=== PATIENT | female | born 1960 | race Caucasian/White ===

== ENCOUNTER 2025-01-09 20:53 | Inpatient (IN) | payer MEDICARE, SELFPAY ==
--- NOTE | ~2025-01-09 | CT_ITS ---
PROCEDURE: CTA abdomen pelvis INDICATION: GI bleeding . COMPARISON: None. TECHNIQUE: Axial 2.5 mm images of the abdomen and pelvis were obtained without and with infusion of 100 cc [id number]-300 intravenous contrast. On an independent workstation, 0.625 mm reformatted images were utilized to render MIP and MPR reconstructed images of the abdominal and pelvic vasculature. FINDINGS: The abdominal aorta, visceral vessels and renal arteries demonstrate normal caliber and patency. No hemodynamically significant stenosis or aneurysm is identified. There is moderate atherosclerotic plaques within the internal iliac arteries bilaterally causing 60-70% stenosis. Otherwise, the iliac and visualized femoral vessels are widely patent. No aneurysm or hemodynamically significant stenosis is noted. No contrast blush seen to suggest active gastrointestinal bleed. NONVASCULAR FINDINGS: The liver parenchyma is unremarkable. No intrahepatic mass or ductal dilatation is evident. The gallbladder is unremarkable. The pancreas and spleen are normal in appearance. The adrenal glands are symmetric in size. The kidneys are unremarkable. No intrarenal stones are noted. There is no hydronephrosis. Evaluation of the bowel loops are limited due to lack of oral contrast. There are diffuse thickening and induration of the transverse, descending and sigmoid colon suggestive of infectious or inflammatory colitis. The bladder and rectum are normal in appearance. No free fluid or air is evident. There is no abdominal or pelvic lymphadenopathy. The lower thoracic and lumbar spines are unremarkable. The lung bases are clear. IMPRESSION: No hemodynamically significant stenosis. No contrast blush seen to suggest active GI bleed. Diffuse thickening of the left colon with adjacent fat induration suggestive of colitis. All CT scans at this facility are performed using low dose modulation techniques as appropriate to perform exam including the following: automated exposure control; use of iterative reconstruction technique; adjustment of the mA and/or kV according to patient size (this includes techniques or standardized protocols for targeted exams where dose is matched to indication/reason for exam). Reviewed, dictated and finalized at location S. IMPRESSION: No hemodynamically significant stenosis. No contrast blush seen to suggest active GI bleed. Diffuse thickening of the left colon with adjacent fat induration suggestive of colitis. All CT scans at this facility are performed using low dose modulation techniqu es as appropriate to perform exam including the following: automated exposure c ontrol; use of iterative reconstruction technique; adjustment of the mA and/or kV according to patient size (this includes techniques or standardized protocol s for targeted exams where dose is matched to indication/reason for exam).
[2025-01-09 20:50] VITALS: PULSE 111; RESP 25; TEMP 36.7; O2SAT 98
[2025-01-09 20:56] VITALS: BP 128/75
[2025-01-09 20:58] VITALS: BP 113/66; BP 128/75; PULSE 107; PULSE 118
[2025-01-09 20:59] VITALS: BP 98/74; PULSE 148
--- NOTE | 2025-01-09 20:59 | ECG_ITS ---
Test Date: 2025-01-09 21:06:06 Measurements Intervals [place] Rate: 100 P: 72 IL: 136 QRS: 72 QRSD: 86 T: 78 QT: 369 QTc: 476 Interpretive Statements SINUS TACHYCARDIA POSSIBLE RIGHT ATRIAL ENLARGEMENT LEFT ATRIAL ENLARGEMENT BORDERLINE ST-T WAVE ABNORMALITY- ANTERIOR LEADS BORDERLINE ECG No previous ECG available for comparison Electronically Signed On 01-10-2025 06:16:03 CDT by Yandel León D.O.
[2025-01-09 21:13] LABS: Hematocrit 49.8 % (37.0-47.0); Hemoglobin 16.9 g/dL (12.0-15.0); Mean Corpuscular HGB Conc 33.9 g/dl (32-36); Mean Corpuscular Hemoglobin 29.6 pg (26-34); Mean Corpuscular Volume 87.4 fl (80-100); Platelet Count Result 418 k/mm3 (150-375); Red Blood Count 5.70 M/mm3 (4.2-5.4); White Blood Count 27.6 K/mm3 (4.5-10.0)
[2025-01-09] MEDS: LACTATED RINGERS 1,000 ML 999 ML IV CONT ×2 (21:26→22:48)
[2025-01-09 21:27] LABS: INR 1.0; Prothrombin Time 13.2 Seconds (11.1-14.7)
[2025-01-09 21:28] LABS: Partial Thromboplastin Time 32.2 Seconds (22.3-36.8)
--- NOTE | 2025-01-09 21:29 | ED.GIBLEED ---
HPI - GI Bleed General Chief complaint: GI Bleed Stated complaint: N/V/D ? RECTAL BLEEDING Time Seen by Provider: 01/09/25 21:10 History of Present Illness HPI Narrative: 64-year-old female with history of osteoporosis presenting to the emergency department today with GI rectal bleeding. Patient states that 5:00 a.m. this morning she woke up with nausea and abdominal discomfort and had diarrhea consistent of bright red blood mixed with dark blood. Patient has been bleeding throughout the day and went to the bathroom over 12 times each time filling the toilet bowl with bright red blood. She started using menstrual pads to try and control the bleeding. She has a history of hysterectomy and or for ectopy. Previously had large amounts of bleeding secondary to endometriosis but this resolved after the surgery. She takes a daily aspirin for heart health but otherwise no other anticoagulation. No abdominal trauma, no recent illnesses. No fever, chills, back pain, chest pain, shortness a breath. Had a colonoscopy previously with no concerns per patient report. Related Data Home Medications ?Medication ?Instructions ?Recorded ?Confirmed ?Last Taken ?Type alendronate 70 mg tablet 70 mg PO WEEKLY 01/10/25 01/10/25 01/07/25 History ergocalciferol (vitamin D2) 1,250 50,000 unit PO WEEKLY 01/10/25 01/10/25 01/07/25 History mcg (50,000 unit) capsule rosuvastatin 10 mg tablet 10 mg PO .nightly 01/10/25 01/10/25 01/09/25 History Allergies Allergy/AdvReac Type Severity Reaction Status Date / Time lidocaine Allergy Severe Swelling Verified 01/10/25 01:45 of Lip/Tongue/Throat codeine Allergy Unknown NONE Verified 01/10/25 01:45 Review of Systems Review of Systems: As reviewed above in HPI [facility]LY [facility] Social History Social History Smoking packs per day: 0.5 Smoking cigarettes per day: 10.0 Smoking status: Current every day smoker Tobacco type: cigarettes Second hand tobacco smoke exposure: Yes Alcohol intake: never Substance use: current Substance use type: marijuana Last use: daily Lack of Transportation: No Lack of Food: Never True Current Housing: I Have Housing Concerned About Future Housing: No Difficulty Paying Gas/Electric Bills: No Difficulty Paying for Meds: No Currently Unemployed: No Education: Bachelor's Degree Difficulty w/ Childcare or Family Care: No Spiritual care concerns: No Exam Narrative: GENERAL: Ill and pale appearing, tachypneic, answering questions appropriately but appears frail HEAD: [Normocephalic, atraumatic.] EYES: Pale conjunctiva, pupils equal reactive. ENT: Nares clear, no rhinorrhea or epistaxis. Mucous membranes dry. NECK: Supple. CHEST: [Clear to auscultation. No respiratory distress.] HEART: [Regular rate and rhythm]. No murmur heard. [Normal peripheral pulses.] ABDOMEN: [Soft, nondistended], [nontender], [No rigidity or guarding] : BRBPR on exam, no rectal pain, blood dried surrounding the rectum. EXTREMITIES: Normal range of motion. [No edema.] SKIN: Warm, dry, no rash. NEURO: [No focal deficits]. Alert and oriented [x3.] PSYCH: [Normal mood and affect.] Course Vital Signs Vital signs: Vital Signs Temperature 36.7 C 01/09/25 20:50 Pulse Rate 111 H 01/09/25 20:50 Respiratory Rate 25 H 01/09/25 20:50 Pulse Oximetry 98 01/09/25 20:50 Oxygen Delivery Room Air 01/09/25 20:50 Temperature 37.0 C 01/10/25 01:53 Pulse Rate 96 01/10/25 01:53 Respiratory Rate 18 01/10/25 01:53 Blood Pressure 128/64 01/10/25 01:53 Pulse Oximetry 99 01/10/25 01:53 Oxygen Delivery Room Air 01/09/25 20:50 MDM - GI Bleed MDM Narrative Medical decision making narrative: 64-year-old female with history of osteoporosis presenting to the emergency department today with GI rectal bleeding. Patient states that 5:00 a.m. this morning she woke up with nausea and abdominal discomfort and had diarrhea consistent of bright red blood mixed with dark blood. Patient has been bleeding throughout the day and went to the bathroom over 12 times each time filling the toilet bowl with bright red blood. She started using menstrual pads to try and control the bleeding. She has a history of hysterectomy and or for ectopy. Previously had large amounts of bleeding secondary to endometriosis but this resolved after the surgery. She takes a daily aspirin for heart health but otherwise no other anticoagulation. No abdominal trauma, no recent illnesses. No fever, chills, back pain, chest pain, shortness a breath. Had a colonoscopy previously with no concerns per patient report. Patient has bright red blood per rectum and positive orthostatic vitals with heart rate increasing 148. Transient hypotension that resolved upon laying down. Current blood pressure 121/65. She does appear pale and ill. Suspect GI bleeding, low suspicion infectious pathology such as colitis. CT angiography of the abdomen pelvis was ordered, blood work obtained, given fluids and placed on electronic device monitor. Patient's laboratory studies x-rays show hemoconcentration with an elevated hemoglobin and a large leukocytosis of 27.6. CT angiography shows no active GI bleed but evidence of colitis. I discussed this with the patient and she is not any recent dietary changes or exotic foods or any new travel anywhere. Unknown exact source of this but given the bloody diarrhea, dehydration and abnormal vital signs she requires hospitalization for IV antibiotics and fluids. Started on Levaquin and given additional fluids. Repeat blood pressure 139/71, heart rate 98. Patient did feel better after fluids. Awaiting discussion with hospitalist at this time for admission. Discussed this with the patient and family members. Spoke to the hospitalist who accepted the patient to a telemetry monitored bed at this time. Patient is hemodynamically improved and given additional fluids for further resuscitation. Medical Records Attestation: I reviewed the patient's medical records. Lab Data Attestation: I reviewed the patient's lab results. 01/09/25 21:05 01/09/25 21:05 Labs: Lab Results 01/09/25 01/09/25 Range/Units 21:05 23:48 WBC 27.6 H (4.5-10.0) K/mm3 RBC 5.70 H (4.2-5.4) M/mm3 Hgb 16.9 H (12.0-15.0) g/dL Hct 49.8 H (37.0-47.0) % MCV 87.4 (80-100) fl MCH 29.6 (26-34) pg MCHC 33.9 (32-36) g/dl RDW 12.6 (11.5-14.5) % Plt Count 418 H (150-375) k/mm3 MPV 9.3 (7.4-10.4) fl Immature Gran % (Auto) Not Reportable Neut % (Auto) Not Reportable Lymph % (Auto) Not Reportable Green % (Auto) Not Reportable Eos % (Auto) Not Reportable Baso % (Auto) Not Reportable Lymph # (Auto) Not Reportable Green # (Auto) Not Reportable Eos # (Auto) Not Reportable Baso # (Auto) Not Reportable Abs Immat Gran (auto) Not Reportable Absolute Neuts (auto) Not Reportable Absolute Nucleated RBC Not Reportable Total Counted 100 Neutrophils % (Manual) 89 H (46-73) % Band Neutrophils % 6 (0-6) % Lymphocytes % (Manual) 2.0 L (18-44) % Monocytes % (Manual) 3 (3-9) % Nucleated RBC % Not Reportable Abs Neuts (Manual) 26.22 H (1.3-6.7) K/mm3 Abs Lymphs (Manual) 0.55 L (1.1-4.5) K/mm3 Abs Monocytes (Manual) 0.82 (0.1-0.90) K/mm3 Platelet Estimate Increased (Adequate) Schistocytes None seen PT 13.2 (11.1-14.7) Seconds INR 1.0 APTT 32.2 (22.3-36.8) Seconds Sodium 136 L (137-145) mmol/L Potassium 4.4 (3.4-5.0) mmol/L Chloride 102 (98-107) mmol/L Carbon Dioxide 23 (22-30) mmol/L Anion Gap 11 (4-12) mmol/L BUN 24 H (7-17) mg/dL Creatinine 0.67 L (0.7-1.0) mg/dL Estim Creat Clear Calc Not Reportable Estimated GFR > 60 (59 - ) Glucose 159 H (65-110) mg/dL Lactic Acid 2.2 H 1.3 (0.7-2.0) mmol/L Calcium 10.6 H (8.4-10.2) mg/dL Total Bilirubin 0.8 (0.2-1.3) mg/dL AST 43 H (14-36) U/L ALT 32 (6-35) U/L Alkaline Phosphatase 87 (38-126) U/L Total Protein 8.2 (6.3-8.2) g/dL Albumin 4.7 (3.5-5.1) g/dL Blood Type A Positive Antibody Screen Negative Imaging Data Attestation: I personally reviewed and interpreted this imaging study as follows: My impression: Impressions Abdomen/Pelvis CTA 01/09/25 21:58 IMPRESSION: No hemodynamically significant stenosis. No contrast blush seen to suggest active GI bleed. Diffuse thickening of the left colon with adjacent fat induration suggestive of colitis. All CT scans at this facility are performed using low dose modulation techniques as appropriate to perform exam including the following: automated exposure control; use of iterative reconstruction technique; adjustment of the mA and/or kV according to patient size (this includes techniques or standardized protocols for targeted exams where dose is matched to indication/reason for exam). Critical Care Time Critical Care Time Critical Care Time: Yes Total Critical Care Time: 35 Discharge Plan Discharge Clinical Impression: Colitis presumed infectious, Hematochezia, Acute dehydration Patient Disposition: Still a Patient Condition: Stable
[2025-01-09 21:30] LABS: Alanine Aminotransferase 32 U/L (6-35); Albumin Level 4.7 g/dL (3.5-5.1); Alkaline Phosphatase 87 U/L (38-126); Anion Gap 11 mmol/L (4-12); Aspartate Amino Transferase 43 U/L (14-36); Bilirubin,Total 0.8 mg/dL (0.2-1.3); Blood Urea Nitrogen 24 mg/dL (7-17); Calcium 10.6 mg/dL (8.4-10.2); Carbon Dioxide 23 mmol/L (22-30); Chloride 102 mmol/L (98-107); Estimated Glomerular Filt Rate > 60; Glucose 159 mg/dL (65-110); Potassium 4.4 mmol/L (3.4-5.0); Sodium 136 mmol/L (137-145); Total Protein 8.2 g/dL (6.3-8.2)
[2025-01-09 21:51] LABS: Band Neutrophils Percent 6 % (0-6); Lymphocytes Absolute Manual 0.55 K/mm3 (1.1-4.5); Lymphocytes Percent Manual 2.0 % (18-44); Monocytes Absolute Manual 0.82 K/mm3 (0.1-0.90); Monocytes Percent Manual 3 % (3-9); Neutrophils Absolute Manual 26.22 K/mm3 (1.3-6.7); Neutrophils Percent Manual 89 % (46-73); Schistocytes None Seen; Total Cells Counted 100
[2025-01-09] MEDS: levoFLOXacin 750 MG/D5W 150 ML 750 MG/150 ML BAG 100 MG IVPB (22:48)
--- NOTE | 2025-01-09 23:00 | PC.NURSE ---
This RN received report from Ryann DAVILA.
[2025-01-09 23:16] VITALS: BP 139/71; PULSE 101
[2025-01-09] MEDS: ONDANSETRON INJ 4 MG/2 ML VIAL IV PUSH (23:42)
--- NOTE | 2025-01-09 23:47 | PC.NURSE ---
Pt used call light to tell this RN she is vomiting. EDP made aware. VORB EDP Tor[place] 4 mg Zofran IV.
[2025-01-10] VITALS (12 sets, daily range): BP systolic 89–128; BP diastolic 54–76; PULSE 79–122; RESP 16–20; TEMP 36.6–37; O2SAT 96–99
[2025-01-10] MEDS: LACTATED RINGERS 1,000 ML 999 ML IV CONT (00:34)
[2025-01-10] MEDS: LACTATED RINGERS 1,000 ML 125 ML IV CONT ×3 (00:35→18:10)
[2025-01-10] MEDS: ONDANSETRON INJ 4 MG/2 ML VIAL IV PUSH (01:29)
--- NOTE | 2025-01-10 01:38 | PC.NURSE ---
patient admitted to room 344. Patient had one bout of diarrhea with bright red blood upon getting to the room. Family at bedside
[2025-01-10] MEDS: metroNIDAZOLE 500 MG/ISO 100ML 500 MG/100 ML BAG 100 MG IVPB ×3 (02:48→18:10)
[2025-01-10] MEDS: cefTRIAXone 1 GM in SODIUM CHLORIDE 0.9% IV 50 ML 100 ML IVPB (02:49)
[2025-01-10] MEDS: HYDROmorphone HCL INJ (*CRX) 1 MG/ML SYR 0.5 MG IV PUSH (03:24)
--- NOTE | 2025-01-10 04:28 | PM.IMHP ---
H&P: HPI History of Present Illness Date/Time: 01/10/25 04:28 Chief Complaint: Rectal bleeding Narrative: 64-year-old female with a past medical history of osteoporosis and self reported irritable bowel syndrome. She reports that she usually ends up having nausea vomiting and diarrhea 2 or 3 times a year. She woke up around 05:00 on the with onset of nausea vomiting and shortly thereafter followed by diarrhea. She reports that she has never had symptoms of GI distress this bad before. Her initial stool was brown and formed but shortly thereafter she began having hematochezia. She reports that her stool was mixture of brighter red and dark blood. She continued to have nausea without hematemesis throughout the day but had numerous bouts of bloody diarrhea. She had at least 12 bowel movements each time she reports she filled the toilet bowl with blood. She was using menstrual pads to try to control the bleeding. She thought that some of the bleeding may be due to a hemorrhoid given the frequency of her stools. She reports a crampy mild abdominal pain prior to diarrheal episodes. She was having diaphoresis and sweating associated with the episodes of GI distress. She denies any chest pain or palpitations. She denies any significant lightheadedness or near syncopal episodes. She has not had any recent ill contacts has not been eating out and does not have any recent travel or antibiotic exposure. She denies any history of mucousy stools or weight loss. She does not have a family history of colon cancer. She had a colonoscopy at about 10 years ago. She is actually supposed to receive a call about scheduling her repeat colonoscopy at [facility] sometime in the next week or so. She was afebrile on presentation to the ER but was tachycardic. She did have positive orthostatic vital signs in the ER. She received 2 L of isotonic fluids but was still orthostatic. Her labs demonstrated significant leukocytosis and polycythemia. She had an elevated BUN on on electrolyte panel and some mild lactic acidosis. She also had a mildly elevated transaminase. She was given a dose of Levaquin in the ER. She does work at a [employer]. Review of Systems Review of Systems: 12 systems were reviewed with pertinent positives and negatives per HPI. Except as documented in the HPI, all other systems were reviewed and are negative. [facility] Past Medical History Medical History Seizures With the last seizure being in . Not on seizure meds Hyperlipidemia Vitamin D deficiency Osteoporosis Surgical History Surgical History (Updated 01/10/25 @ 07:36 by Brii Pardo DO) History of rhinoplasty History of tonsillectomy and adenoidectomy History of total abdominal hysterectomy and bilateral salpingo-oophorectomy Social History Social History (Updated 01/10/25 @ 07:38 by Brii Pardo DO) Social History: She is . Her and her ex cisterna share a condo her [id number] lives upstairs she lives downstairs. The patient works at a [employer]. She has smoked up to a pack of cigarettes per day and started smoking in 2000. She is currently cut back to 0.5 packs of cigarettes per day. She does not drink alcohol. She smokes marijuana daily. Code status: Full code Surrogate decision maker: Tatum Urias (daughter) Smoking packs per day: 0.5 Smoking cigarettes per day: 10.0 Years smoked: 24 Smoking pack-years: 12.00 Smoking status: Current every day smoker Tobacco type: cigarettes Second hand tobacco smoke exposure: Yes Alcohol intake: never Substance use: current Substance use type: marijuana Last use: daily Lack of Transportation: No Lack of Food: Never True Current Housing: I Have Housing Concerned About Future Housing: No Difficulty Paying Gas/Electric Bills: No Difficulty Paying for Meds: No Currently Unemployed: No Education: Bachelor's Degree Difficulty w/ Childcare or Family Care: No Spiritual care concerns: No Meds Home Medications and Allergies Home Medications ?Medication ?Instructions ?Recorded ?Confirmed ?Type alendronate 70 mg tablet 70 mg PO WEEKLY 01/10/25 01/10/25 History ergocalciferol (vitamin D2) 1,250 50,000 unit PO WEEKLY 01/10/25 01/10/25 History mcg (50,000 unit) capsule rosuvastatin 10 mg tablet 10 mg PO .nightly 01/10/25 01/10/25 History Allergies Allergy/AdvReac Type Severity Reaction Status Date / Time lidocaine Allergy Severe Swelling Verified 01/10/25 01:45 of Lip/Tongue/Throat codeine Allergy Unknown NONE Verified 01/10/25 01:45 Vital Signs Vital Signs - 24 hr 01/09/25 20:50 01/09/25 20:56 01/09/25 20:58 Temperature 98.1 F Pulse Rate 111 H 107 H Respiratory Rate 25 H Blood Pressure 128/75 128/75 Pulse Oximetry 98 Oxygen Delivery Room Air 01/09/25 20:58 01/09/25 20:59 01/09/25 23:16 Temperature Pulse Rate 118 H 148 H 101 H Respiratory Rate Blood Pressure 113/66 98/74 L 139/71 Pulse Oximetry Oxygen Delivery 01/10/25 01:23 01/10/25 01:53 Temperature 98.6 F Pulse Rate 108 H 96 Respiratory Rate 20 18 Blood Pressure 123/76 128/64 Pulse Oximetry 97 99 Oxygen Delivery Exam Narrative: Weight 54.6 kg BMI 20 Const: Other: Acutely ill-appearing, well-developed well-nourished, appears stated age HENMT: Other: Mucous membranes are dry, no oral pharyngeal erythema, head is normocephalic atraumatic Eyes: Other: Pupils are equal and reactive, no scleral icterus, no conjunctival pallor Neck: Other: No JVD, no lymphadenopathy, no thyromegaly Resp: Other: Clear to auscultation bilaterally, and no increased work of breathing Cardio: Other: Regular rate, regular rhythm, 2+ bilateral radial and pedal pulses, no murmur GI: Other: Soft, mild generalized tenderness to palpation, nondistended, hyperactive bowel sounds Skin: Other: No pallor, non jaundice, normal temperature to touch Neuro: Other: Alert oriented, speech is clear, no facial asymmetry, moves all extremities equally, no localizing neurologic deficits noted during the course of conversation Extrem: Other: No clubbing, cyanosis or edema, moves all extremities equally Psych: Other: Appropriate mood and affect, pleasant and cooperative, judgment and insight intact H&P: Results Labs Labs: Laboratory Tests 01/09/25 21:05 01/09/25 21:05 01/09/25 01/09/25 21:05 23:48 WBC 27.6 H RBC 5.70 H Hgb 16.9 H Hct 49.8 H MCV 87.4 MCH 29.6 MCHC 33.9 RDW 12.6 Plt Count 418 H MPV 9.3 Immature Gran % (Auto) Not Reportable Neut % (Auto) Not Reportable Lymph % (Auto) Not Reportable [place] % (Auto) Not Reportable Eos % (Auto) Not Reportable Baso % (Auto) Not Reportable Lymph # (Auto) Not Reportable [place] # (Auto) Not Reportable Eos # (Auto) Not Reportable Baso # (Auto) Not Reportable Abs Immat Gran (auto) Not Reportable Absolute Neuts (auto) Not Reportable Absolute Nucleated RBC Not Reportable Total Counted 100 Neutrophils % (Manual) 89 H Band Neutrophils % 6 Lymphocytes % (Manual) 2.0 L Monocytes % (Manual) 3 Nucleated RBC % Not Reportable Abs Neuts (Manual) 26.22 H Abs Lymphs (Manual) 0.55 L Abs Monocytes (Manual) 0.82 Platelet Estimate Increased Schistocytes None seen PT 13.2 INR 1.0 APTT 32.2 Sodium 136 L Potassium 4.4 Chloride 102 Carbon Dioxide 23 Anion Gap 11 BUN 24 H Creatinine 0.67 L Estim Creat Clear Calc Not Reportable Estimated GFR > 60 Glucose 159 H Lactic Acid 2.2 H 1.3 Calcium 10.6 H Total Bilirubin 0.8 AST 43 H ALT 32 Alkaline Phosphatase 87 Total Protein 8.2 Albumin 4.7 Blood Type A Positive Antibody Screen Negative Impressions Abdomen/Pelvis CTA 01/09/25 21:58 IMPRESSION: No hemodynamically significant stenosis. No contrast blush seen to suggest active GI bleed. Diffuse thickening of the left colon with adjacent fat induration suggestive of colitis. EKG: Sinus tachycardia rate 100 QTC 478, possible left atrial enlargement, left atrial enlargement Assessment and Plan Assessment and plan (1) Colitis presumed infectious: Code(s): K52.9 - Noninfective gastroenteritis and colitis, unspecified Status: Acute (2) Hematochezia: Code(s): K92.1 - Melena Status: Acute (3) Acute dehydration: Code(s): E86.0 - Dehydration Status: Acute (4) Polycythemia due to fall in plasma volume: Code(s): D75.1 - Secondary polycythemia Status: Acute Plan Patient has acute colitis presumed to be infectious. Inflammatory colitis seems less likely given presentation of symptoms and no preceding waxing and waning symptoms. Symptoms are acute in onset and associated with marked leukocytosis. Patient met septic criteria on presentation and 30 mL/kilos fluid bolus. She was still tachycardic and received 1/3 L of fluid which improved her heart rate. She was markedly volume depleted with polycythemia due to hemoconcentration. Is will continue IV fluid hydration and repeat CBC in a.m.. The patient reports that her number of stools have slowed since arriving to the hospital. Will change the patient's antibiotics from Levaquin to Rocephin and Flagyl per antibiotic stewardship guidelines. Blood cultures have been obtained and are pending. Will send stool studies for C diff and culture. Will monitor H&H. The patient would not be a candidate for acute colonoscopy in her acute presumed infectious state. She already has referral for outpatient colonoscopy. Will hold off on consulting Gastroenterology at this time. MEDICAL DECISION MAKING NARRATIVE -Spoke with the ED provider in detail regarding patient's evaluation, workup and management -Patient seen and examined at bedside -Collaborated with patient's nurse at the bedside in detail and addressed all concerns -Labs, electrolytes, radiology, investigations and test results personally reviewed and interpreted unless otherwise specified -ED/Consult/Nursing/Ancilliary notes on the chart reviewed and appreciated -Spoke with patient at bedside and diagnosis and plan of care was discussed. All questions answered. Quality VTE Prophylaxis VTE prophylaxis: mechanical ordered (SCDs) Hospitalist MIPS Advance Care Plan I have confirmed that the patient's Advanced Care Plan is present, code status is documented, or surrogate decision maker is listed in patient medical record.: Yes Medication Reconciliation I have utilized all available resources to obtain, update and review the patients current medications (includes all prescriptions, OTC, herbals, cannabis, and nutritional supplements).: Yes
[2025-01-10 05:03] LABS: Hematocrit 45.1 % (37.0-47.0); Hemoglobin 14.9 g/dL (12.0-15.0); Immature Granulocyte Percent A 0.6 % (0-0.5); Lymphocytes Absolute Auto 1.56 K/mm3 (0.9-3.2); Mean Corpuscular HGB Conc 33.0 g/dl (32-36); Mean Corpuscular Hemoglobin 29.7 pg (26-34); Mean Corpuscular Volume 90.0 fl (80-100); Nucleated Red Blood Cells Absolute Auto 0.000 K/mm3 (0.0-0.012); Nucleated Red Blood Cells Perc 0.0 % (0.0-0.2); Platelet Count Result 333 k/mm3 (150-375); Red Blood Count 5.01 M/mm3 (4.2-5.4); White Blood Count 24.1 K/mm3 (4.5-10.0)
[2025-01-10 05:27] LABS: Burr Cells Occasional; Ovalocytes 1+; Schistocytes None Seen
[2025-01-10 05:44] LABS: Alanine Aminotransferase 19 U/L (6-35); Albumin Level 3.6 g/dL (3.5-5.1); Alkaline Phosphatase 69 U/L (38-126); Anion Gap 7 mmol/L (4-12); Aspartate Amino Transferase 32 U/L (14-36); Bilirubin,Total 0.6 mg/dL (0.2-1.3); Blood Urea Nitrogen 14 mg/dL (7-17); Calcium 9.8 mg/dL (8.4-10.2); Carbon Dioxide 24 mmol/L (22-30); Chloride 104 mmol/L (98-107); Estimated CRCL calculation 64 ml/min; Estimated Glomerular Filt Rate > 60; Glucose 117 mg/dL (65-110); Magnesium 1.8 mg/dL (1.6-2.3); Potassium 4.8 mmol/L (3.4-5.0); Sodium 135 mmol/L (137-145); Total Protein 6.2 g/dL (6.3-8.2)
--- NOTE | 2025-01-10 09:00 | P.PNIM_ITS ---
Progress Note: A&P Assessment and Plan (1) Sepsis: Code(s): A41.9 - Sepsis, unspecified organism Status: Acute Assessment and Plan: * Meets SIRS criteria: Tachycardia, leukocytosis * lactic acid: 2.2 * 30 mL/kg = 1/3 L of fluid * suspected source: Infectious Colitis * blood cultures drawn on 01/09 * Abdomen/pelvis CT: Diffuse thickening of the left colon with adjacent fat induration suggestive of colitis. No hemodynamically significant stenosis. No contrast blush seen to suggest active GI bleed. * 01/10: Leukocytosis improving, tachycardia has resolved. Lactic acid WNL (2) Colitis presumed infectious: Code(s): K52.9 - Noninfective gastroenteritis and colitis, unspecified Status: Acute Assessment and Plan: Patient states that every year she will experience nausea, vomiting and diarrhea similar to the presentation she has during this hospitalization, but states that this time it is much worse. She also reports noticing blood clots in her stool yesterday which is new. * Inflammatory colitis likely given presentation of symptoms, which are acute in onset with associated leukocytosis * Met septic criteria presentation * Volume depleted with polycythemia due to hemoconcentration * Changed Levaquin to Rocephin plus Flagyl * Blood cultures obtained, pending * Stool studies for C diff and culture pending * GI consult for further recommendations - she had a colonoscopy scheduled for February (3) Hematochezia: Code(s): K92.1 - Melena Status: Acute Assessment and Plan: * See above * H&H WNL * transfuse if <7 * trend H&H (4) Acute dehydration: Code(s): E86.0 - Dehydration Status: Acute Assessment and Plan: * Likely secondary to problem underlying infectious colitis Plan Patient has acute colitis presumed to be infectious. Inflammatory colitis seems less likely given presentation of symptoms and no preceding waxing and waning symptoms. Symptoms are acute in onset and associated with marked leukocytosis. Patient met septic criteria on presentation and 30 mL/kilos fluid bolus. She was still tachycardic and received 1/3 L of fluid which improved her heart rate. She was markedly volume depleted with polycythemia due to hemoconcentration. Is will continue IV fluid hydration and repeat CBC in a.m.. The patient reports that her number of stools have slowed since arriving to the hospital. Will change the patient's antibiotics from Levaquin to Rocephin and Flagyl per antibiotic stewardship guidelines. Blood cultures have been obtained and are pending. Will send stool studies for C diff and culture. Will monitor H&H. The patient would not be a candidate for acute colonoscopy in her acute presumed infectious state. She already has referral for outpatient colonoscopy. Will hold off on consulting Gastroenterology at this time. Subjective Date/time seen: 01/10/25 09:00 Interval history: 64-year-old female with a past medical history of osteoporosis and self reported irritable bowel syndrome. She reports that she usually ends up having nausea vomiting and diarrhea 2 or 3 times a year. 01/10/2025 Patient resting comfortably in bed at time of examination. Endorses improvement of her nausea, abdominal discomfort and diarrhea. Still having some hematochezia. WBC down from 20 7.6-24.1, H&H WNL. No major electrolyte abnormalities. Review of Systems Review of Systems: 12 systems were reviewed with pertinent positives and negatives per HPI. Except as documented in the HPI, all other systems were reviewed and are negative. Exam Narrative: Weight 54.6 kg BMI 20 Const: Other: Acutely ill-appearing, well-developed well-nourished, appears stated age HENMT: Other: Mucous membranes are dry, no oral pharyngeal erythema, head is normocephalic atraumatic Eyes: Other: Pupils are equal and reactive, no scleral icterus, no conjunctival pallor Neck: Other: No JVD, no lymphadenopathy, no thyromegaly Resp: Other: Clear to auscultation bilaterally, and no increased work of breathing Cardio: Other: Regular rate, regular rhythm, 2+ bilateral radial and pedal pulses, no murmur GI: Other: Soft, mild generalized tenderness to palpation, nondistended, hyperactive bowel sounds Skin: Other: No pallor, non jaundice, normal temperature to touch Neuro: Other: Alert oriented, speech is clear, no facial asymmetry, moves all extremities equally, no localizing neurologic deficits noted during the course of conversation Extrem: Other: No clubbing, cyanosis or edema, moves all extremities equally Psych: Other: Appropriate mood and affect, pleasant and cooperative, judgment and insight intact Objective Data Vital Signs Vital Signs: Vital Signs - 24 hr 01/09/25 20:50 01/09/25 20:56 01/09/25 20:58 Temperature 98.1 F Pulse Rate 111 H 107 H Respiratory Rate 25 H Blood Pressure 128/75 128/75 Pulse Oximetry 98 Oxygen Delivery Room Air Fraction of Inspired Oxygen 01/09/25 20:58 01/09/25 20:59 01/09/25 23:16 Temperature Pulse Rate 118 H 148 H 101 H Respiratory Rate Blood Pressure 113/66 98/74 L 139/71 Pulse Oximetry Oxygen Delivery Fraction of Inspired Oxygen 01/10/25 01:23 01/10/25 01:53 01/10/25 04:00 Temperature 98.6 F Pulse Rate 108 H 96 87 Respiratory Rate 20 18 Blood Pressure 123/76 128/64 Pulse Oximetry 97 99 Oxygen Delivery Fraction of Inspired Oxygen 01/10/25 06:00 01/10/25 07:42 01/10/25 08:00 Temperature 98.6 F Pulse Rate 79 93 Respiratory Rate 18 Blood Pressure 125/69 Pulse Oximetry 96 97 Oxygen Delivery Room Air Room Air Fraction of Inspired Oxygen 21 Intake/Output Intake/Output: Intake & Output 01/07/25 01/08/25 01/09/25 01/10/25 23:59 23:59 23:59 23:59 Intake Total 1999 1481.3 Output Total 1 Balance 1999 1480.3 Meds/Results Medications: Active Medications Generic Name Dose Route Start Last Admin Trade Name Freq PRN Reason Stop Dose Admin Acetaminophen 650 mg 01/09/25 23:59 Acetaminophen 325 Mg Tablet PO Q4H PRN Mild Pain (1-3) or Fever Hydrocodone Bitart/Acetaminophen 1 tab 01/09/25 23:59 Hydrocodone/Acetaminophen (*Crx) 5-325 Mg Tablet PO Q4H PRN Pain Rated 4-6 Hydromorphone HCl 0.5 mg 01/09/25 23:59 01/10/25 03:24 Hydromorphone Hcl Inj (*Crx) 1 Mg/Ml Syr IV PUSH 0.5 mg Q4H PRN Administration Pain Rated 7-10 Lactated Ringer's 1,000 mls @ 125 mls/hr 01/09/25 23:45 01/10/25 08:26 Lr - Lactated Ringers Iv IV CONT 125 mls/hr .Q8H JASON Administration Ceftriaxone Sodium 1 gm/ 50 mls @ 100 mls/hr 01/10/25 02:30 01/10/25 03:21 Sodium Chloride IVPB Infused Q24H JASON Infusion Metronidazole 500 mg in 100 mls @ 100 mls/hr 01/10/25 03:00 01/10/25 02:48 Flagyl 500 Mg/Iso Soln 100 Ml IVPB 100 mls/hr Q8H JASON Administration Ondansetron HCl 4 mg 01/09/25 23:59 01/10/25 01:29 Ondansetron Inj 4 Mg/2 Ml Vial IV PUSH 4 mg Q4H PRN Administration Nausea Radiology Results: ITS Impressions Abdomen/Pelvis CTA 01/09/25 21:58 IMPRESSION: No hemodynamically significant stenosis. No contrast blush seen to suggest active GI bleed. Diffuse thickening of the left colon with adjacent fat induration suggestive of colitis. All CT scans at this facility are performed using low dose modulation techniques as appropriate to perform exam including the following: automated exposure control; use of iterative reconstruction technique; adjustment of the mA and/or kV according to patient size (this includes techniques or standardized protocols for targeted exams where dose is matched to indication/reason for exam). Labs Labs: Laboratory Results - last 24 hr 01/09/25 01/09/25 01/10/25 21:05 23:48 04:54 WBC 27.6 H 24.1 H RBC 5.70 H 5.01 Hgb 16.9 H 14.9 Hct 49.8 H 45.1 MCV 87.4 90.0 MCH 29.6 29.7 MCHC 33.9 33.0 RDW 12.6 12.7 Plt Count 418 H 333 MPV 9.3 9.3 Immature Gran % (Auto) Not Reportable 0.6 H Neut % (Auto) Not Reportable 85.6 H Lymph % (Auto) Not Reportable 6.5 L [place] % (Auto) Not Reportable 7.1 Eos % (Auto) Not Reportable 0.0 Baso % (Auto) Not Reportable 0.2 Lymph # (Auto) Not Reportable 1.56 [place] # (Auto) Not Reportable 1.7 H Eos # (Auto) Not Reportable 0.0 Baso # (Auto) Not Reportable 0.0 Abs Immat Gran (auto) Not Reportable 0.14 H Absolute Neuts (auto) Not Reportable 20.7 H Absolute Nucleated RBC Not Reportable 0.000 Total Counted 100 Neutrophils % (Manual) 89 H Band Neutrophils % 6 Not Reportable Lymphocytes % (Manual) 2.0 L Monocytes % (Manual) 3 Nucleated RBC % Not Reportable 0.0 Abs Neuts (Manual) 26.22 H Abs Lymphs (Manual) 0.55 L Abs Monocytes (Manual) 0.82 Platelet Estimate Increased Adequate Ovalocytes 1+ [place] Cells Occasional Schistocytes None seen None seen PT 13.2 INR 1.0 APTT 32.2 Sodium 136 L 135 L Potassium 4.4 4.8 Chloride 102 104 Carbon Dioxide 23 24 Anion Gap 11 7 BUN 24 H 14 D Creatinine 0.67 L 0.64 L Estim Creat Clear Calc Not Reportable 64 Estimated GFR > 60 > 60 Glucose 159 H 117 H Lactic Acid 2.2 H 1.3 Calcium 10.6 H 9.8 Magnesium 1.8 Total Bilirubin 0.8 0.6 AST 43 H 32 ALT 32 19 Alkaline Phosphatase 87 69 Total Protein 8.2 6.2 L Albumin 4.7 3.6 Blood Type A Positive Antibody Screen Negative Quality VTE Prophylaxis VTE prophylaxis: mechanical ordered (SCDs)
[2025-01-10 14:05] LABS: Hematocrit 43.9 % (37.0-47.0); Hemoglobin 14.5 g/dL (12.0-15.0)
[2025-01-10] MEDS: HYDROcodone/acetaminophen (*CRX) 5-325 MG TABLET 1 TAB PO (14:27)
--- NOTE | 2025-01-10 14:34 | P.CONGI_ITS ---
Assessment and Plan Assessment and plan (1) Colitis: Code(s): K52.9 - Noninfective gastroenteritis and colitis, unspecified Status: Acute Assessment and Plan: probably ischemic, lactic improved get stool cultures to rule out infection treated with iv fluids, antibiotics, bowel rest already feeling better I would defer colonoscopy until clinically better preferably in few more weeks unless any change in clinical condition (2) Hematochezia: Code(s): K92.1 - Melena Status: Acute Assessment and Plan: from colitis monitor (3) Acute dehydration: Code(s): E86.0 - Dehydration Status: Acute Assessment and Plan: treated she came in with hemoconcentration, abd pain, diarrhea (4) Lower abdominal pain: Code(s): R10.30 - Lower abdominal pain, unspecified Status: Acute Assessment and Plan: improving slowly (5) Sepsis: Code(s): A41.9 - Sepsis, unspecified organism Status: Acute Assessment and Plan: on arrival GI Consult Note Consult date/time: 01/10/25 14:34 Reason for consult: colitis, rectal bleeding HPI: Carly Urias is a 64 year old female with past medical history of osteoporosis, irritable bowel syndrome with her last colonoscopy about 10 years ago. She reports that she usually she will have 1-2 times a year episode of self limited nausea vomiting and diarrhea for 1-2 days but never had rectal bleeding. Yesterday woke up around 05:00 with new onset of nausea, vomiting and shortly thereafter followed by diarrhea, had multiple loose stools and eventually turned to blood. Then also had crampy lower abdominal pain, also diaphoresis and sweating. She denies any significant lightheadedness or near syncopal episodes. No recent ill contacts, denies eating out, does not have any recent travel or antibiotic exposure. She had a colonoscopy at about 10 years ago. She is actually supposed to receive a call about scheduling her repeat colonoscopy at [facility] in few more weeks but just as routine. She was orthostatic in ER, received 2 L of isotonic fluids. Labs demonstrated significant leukocytosis, dehydration with hemoconcentration. She had an elevated BUN and some mild lactic acidosis which has improved. Review of Systems 2 Constitutional: Constitutional: Reports chills Eyes: Eyes: Denies blurry vision ENT: Reports Normal hearing present Cardiovascular: Cardiovascular: Denies chest pain Respiratory: Respiratory: Denies cough Gastrointestinal: Gastrointestinal: Reports abdominal pain, Reports hematochezia, Reports diarrhea, Reports nausea and Reports vomiting Genitourinary: Genitourinary: Denies dysuria Musculoskeletal: Musculoskeletal: Denies neck pain Integumentary/Breasts: Skin/Breast: Denies rash Neurologic: Denies Abnormal speech present Psychiatric: Psychiatric: Denies behavioral changes [facility] Past Medical History Medical History (Updated 01/10/25 @ 14:40 by Vinh King MD) Lower abdominal pain Colitis Seizures With the last seizure being in . Not on seizure meds Hyperlipidemia Vitamin D deficiency Osteoporosis Surgical History Surgical History (Updated 01/10/25 @ 07:36 by Brii Pardo DO) History of rhinoplasty History of tonsillectomy and adenoidectomy History of total abdominal hysterectomy and bilateral salpingo-oophorectomy Social History Social History (Updated 01/10/25 @ 07:38 by Brii Pardo DO) Social History: She is . Her and her ex cisterna share a condo her [id number] lives upstairs she lives downstairs. The patient works at a [employer]. She has smoked up to a pack of cigarettes per day and started smoking in 2000. She is currently cut back to 0.5 packs of cigarettes per day. She does not drink alcohol. She smokes marijuana daily. Code status: Full code Surrogate decision maker: Tatum Urias (daughter) Smoking packs per day: 0.5 Smoking cigarettes per day: 10.0 Years smoked: 24 Smoking pack-years: 12.00 Smoking status: Current every day smoker Tobacco type: cigarettes Second hand tobacco smoke exposure: Yes Alcohol intake: never Substance use: current Substance use type: marijuana Last use: daily Lack of Transportation: No Lack of Food: Never True Current Housing: I Have Housing Concerned About Future Housing: No Difficulty Paying Gas/Electric Bills: No Difficulty Paying for Meds: No Currently Unemployed: No Education: Bachelor's Degree Difficulty w/ Childcare or Family Care: No Spiritual care concerns: No Meds Home Medications and Allergies Home Medications ?Medication ?Instructions ?Recorded ?Confirmed ?Type alendronate 70 mg tablet 70 mg PO WEEKLY 01/10/25 History ergocalciferol (vitamin D2) 1,250 50,000 unit PO WEEKL Y 01/10/25 01/10/25 History mcg (50,000 unit) capsule rosuvastatin 10 mg tablet 10 mg PO .nightly 01/10/25 1 History Allergies Allergy/AdvReac Type Severity Reaction Status Date / Time lidocaine Allergy Severe Swelling Verified 01/10/25 01:45 of Lip/Tongue/Throat codeine Allergy Unknown NONE Verified 01/10/25 01:45 Vital Signs Vital Signs - 24 hr 01/09/25 20:50 01/09/25 20:56 01/09/25 20:58 Temperature 98.1 F Pulse Rate 111 H 107 H Respiratory Rate 25 H Blood Pressure 128/75 128/75 Pulse Oximetry 98 Oxygen Delivery Room Air Fraction of Inspired Oxygen 01/09/25 20:58 01/09/25 20:59 01/09/25 23:16 Temperature Pulse Rate 118 H 148 H 101 H Respiratory Rate Blood Pressure 113/66 98/74 L 139/71 Pulse Oximetry Oxygen Delivery Fraction of Inspired Oxygen 01/10/25 01:23 01/10/25 01:53 01/10/25 04:00 Temperature 98.6 F Pulse Rate 108 H 96 87 Respiratory Rate 20 18 Blood Pressure 123/76 128/64 Pulse Oximetry 97 99 Oxygen Delivery Fraction of Inspired Oxygen 01/10/25 06:00 01/10/25 07:42 01/10/25 08:00 Temperature 98.6 F Pulse Rate 79 93 Respiratory Rate 18 Blood Pressure 125/69 Pulse Oximetry 96 97 Oxygen Delivery Room Air Room Air Fraction of Inspired Oxygen 21 01/10/25 14:00 Temperature 98.0 F Pulse Rate 86 Respiratory Rate 18 Blood Pressure 126/70 Pulse Oximetry 96 Oxygen Delivery Fraction of Inspired Oxygen Exam 2 Const: General: comfortable and no acute distress HENMT: Face/Nose/Sinus: Normal nares present Eyes: General: appearance normal, both eyes and all related structures Neck: Neck: supple Resp: Auscultation: clear to auscultation bilaterally Cardio: Rate: regular rate Rhythm: regular rhythm GI: Inspection: non-distended GI Palp: Yes Soft to palpation, Yes Tenderness to palpation present (GI) (ttp in lower abdomen, no rebound) and No Guarding due to palpation present (GI) Skin: General skin exam: normal color Neuro: Speech: normal speech Motor exam (neuro): 5/5 motor strength present throughout Extrem: General: normal to inspection Psych: Mental Status: mental status grossly normal Results Labs 01/10/25 14:00 01/10/25 04:54 Labs: Short CBC 01/09/25 01/10/25 01/10/25 Range/Units 21:05 04:54 14:00 WBC 27.6 H 24.1 H (4.5-10.0) K/mm3 Hgb 16.9 H 14.9 14.5 (12.0-15.0) g/dL Hct 49.8 H 45.1 43.9 (37.0-47.0) % Plt Count 418 H 333 (150-375) k/mm3 BMP 01/09/25 01/10/25 21:05 04:54 Sodium 136 L 135 L Potassium 4.4 4.8 Chloride 102 104 Carbon Dioxide 23 24 BUN 24 H 14 D Creatinine 0.67 L 0.64 L Glucose 159 H 117 H Calcium 10.6 H 9.8 Liver Function 01/09/25 01/10/25 Range/Units 21:05 04:54 Total Bilirubin 0.8 0.6 (0.2-1.3) mg/dL AST 43 H 32 (14-36) U/L ALT 32 19 (6-35) U/L Alkaline Phosphatase 87 69 (38-126) U/L Albumin 4.7 3.6 (3.5-5.1) g/dL
[2025-01-10 20:07] LABS: Hematocrit 41.9 % (37.0-47.0); Hemoglobin 14.0 g/dL (12.0-15.0)
[2025-01-11] VITALS (14 sets, daily range): BP systolic 86–113; BP diastolic 45–64; PULSE 76–117; RESP 16–20; TEMP 36.5–36.9; O2SAT 96–97
[2025-01-11] MEDS: LACTATED RINGERS 1,000 ML 125 ML IV CONT ×3 (00:36→17:43)
[2025-01-11] MEDS: ONDANSETRON INJ 4 MG/2 ML VIAL IV PUSH ×3 (00:36→14:31)
[2025-01-11] MEDS: HYDROcodone/acetaminophen (*CRX) 5-325 MG TABLET 1 TAB PO ×2 (03:08→14:31)
[2025-01-11] MEDS: metroNIDAZOLE 500 MG/ISO 100ML 500 MG/100 ML BAG 100 MG IVPB ×3 (03:08→18:14)
[2025-01-11] MEDS: cefTRIAXone 1 GM in SODIUM CHLORIDE 0.9% IV 50 ML 100 ML IVPB (03:08)
[2025-01-11 03:41] LABS: Hematocrit 43.1 % (37.0-47.0); Hemoglobin 14.4 g/dL (12.0-15.0)
[2025-01-11 08:28] LABS: Hematocrit 41.2 % (37.0-47.0); Hemoglobin 13.6 g/dL (12.0-15.0); Immature Granulocyte Percent A 0.5 % (0-0.5); Lymphocytes Absolute Auto 2.92 K/mm3 (0.9-3.2); Mean Corpuscular HGB Conc 33.0 g/dl (32-36); Mean Corpuscular Hemoglobin 29.7 pg (26-34); Mean Corpuscular Volume 90.0 fl (80-100); Nucleated Red Blood Cells Absolute Auto 0.000 K/mm3 (0.0-0.012); Nucleated Red Blood Cells Perc 0.0 % (0.0-0.2); Platelet Count Result 274 k/mm3 (150-375); Red Blood Count 4.58 M/mm3 (4.2-5.4); White Blood Count 18.9 K/mm3 (4.5-10.0)
[2025-01-11 08:51] LABS: Hematocrit 40.6 % (37.0-47.0); Hemoglobin 13.3 g/dL (12.0-15.0)
[2025-01-11 08:53] LABS: Alanine Aminotransferase 14 U/L (6-35); Albumin Level 3.3 g/dL (3.5-5.1); Alkaline Phosphatase 76 U/L (38-126); Anion Gap 3 mmol/L (4-12); Aspartate Amino Transferase 29 U/L (14-36); Bilirubin,Total 0.5 mg/dL (0.2-1.3); Blood Urea Nitrogen 10 mg/dL (7-17); Calcium 9.3 mg/dL (8.4-10.2); Carbon Dioxide 27 mmol/L (22-30); Chloride 102 mmol/L (98-107); Estimated CRCL calculation 60 ml/min; Estimated Glomerular Filt Rate > 60; Glucose 91 mg/dL (65-110); Potassium 3.8 mmol/L (3.4-5.0); Sodium 132 mmol/L (137-145); Total Protein 5.9 g/dL (6.3-8.2)
--- NOTE | 2025-01-11 11:28 | P.PNIM_ITS ---
Progress Note: A&P Assessment and Plan (1) Sepsis: Code(s): A41.9 - Sepsis, unspecified organism Status: Acute Assessment and Plan: * Meets SIRS criteria: Tachycardia, leukocytosis * lactic acid: 2.2 * 30 mL/kg = 1/3 L of fluid * suspected source: Infectious Colitis * blood cultures drawn on 01/09 - still pending * Abdomen/pelvis CT: Diffuse thickening of the left colon with adjacent fat induration suggestive of colitis. No hemodynamically significant stenosis. No contrast blush seen to suggest active GI bleed. * 01/11: WBC 24.1 -> 18.9, remains afebrile without tachy (2) Colitis presumed infectious: Code(s): K52.9 - Noninfective gastroenteritis and colitis, unspecified Status: Acute Assessment and Plan: Patient states that every year she will experience nausea, vomiting and diarrhea similar to the presentation she has during this hospitalization, but states that this time it is much worse. She also reports noticing blood clots in her stool yesterday which is new. * Inflammatory colitis likely given presentation of symptoms, which are acute in onset with associated leukocytosis * Met septic criteria presentation * Volume depleted with polycythemia due to hemoconcentration * Changed Levaquin to Rocephin plus Flagyl * Blood cultures obtained, pending * Stool studies for C diff and culture pending * GI consult for further recommendations - she had a colonoscopy scheduled for February * treat with IV fluids, antibiotics continue bowel rest * defer colonoscopy until acute infection has cleared (3) Hematochezia: Code(s): K92.1 - Melena Status: Acute Assessment and Plan: * See above * H&H WNL * transfuse if <7 * trend H&H (4) Acute dehydration: Code(s): E86.0 - Dehydration Status: Acute Assessment and Plan: * Likely secondary to problem underlying infectious colitis Subjective Date/time seen: 01/11/25 11:28 Interval history: 64-year-old female with a past medical history of osteoporosis and self reported irritable bowel syndrome. She reports that she usually ends up having nausea vomiting and diarrhea 2 or 3 times a year. 01/11/2025 Patient resting comfortably in bed at time of examination. Endorsing improvement of her abdominal discomfort, still having some nausea/ 1 episode of emesis this morning. blood culture still pending. GI consulted, no acute intervention at this time, plan for colonoscopy in the outpatient setting. Leukocytosis improving, down to 18.9 today. Sitting continues to downtrend, down from 135->132. No other electrolyte abnormalities. Review of Systems Review of Systems: 12 systems were reviewed with pertinent positives and negatives per HPI. Except as documented in the HPI, all other systems were reviewed and are negative. Exam Narrative: Weight 54.6 kg BMI 20 Const: Other: Acutely ill-appearing, well-developed well-nourished, appears stated age HENMT: Other: Mucous membranes are dry, no oral pharyngeal erythema, head is normocephalic atraumatic Eyes: Other: Pupils are equal and reactive, no scleral icterus, no conjunctival pallor Neck: Other: No JVD, no lymphadenopathy, no thyromegaly Resp: Other: Clear to auscultation bilaterally, and no increased work of breathing Cardio: Other: Regular rate, regular rhythm, 2+ bilateral radial and pedal pulses, no murmur GI: Other: Soft, mild generalized tenderness to palpation, nondistended, hyperactive bowel sounds Skin: Other: No pallor, non jaundice, normal temperature to touch Neuro: Other: Alert oriented, speech is clear, no facial asymmetry, moves all extremities equally, no localizing neurologic deficits noted during the course of conversation Extrem: Other: No clubbing, cyanosis or edema, moves all extremities equally Psych: Other: Appropriate mood and affect, pleasant and cooperative, judgment and insight intact Objective Data Vital Signs Vital Signs: Vital Signs - 24 hr 01/10/25 12:06 01/10/25 14:00 01/10/25 16:05 Temperature 98.0 F Pulse Rate 82 86 83 Respiratory Rate 18 Blood Pressure 126/70 Pulse Oximetry 96 Oxygen Delivery 01/10/25 20:00 01/10/25 20:30 01/10/25 21:32 Temperature 97.9 F Pulse Rate 99 122 H 89 Respiratory Rate 16 Blood Pressure 112/54 L 89/61 L 117/69 Pulse Oximetry 96 Oxygen Delivery 01/11/25 00:00 01/11/25 04:00 01/11/25 05:50 Temperature 98.4 F Pulse Rate 117 H 84 92 Respiratory Rate 16 Blood Pressure 113/64 Pulse Oximetry 97 Oxygen Delivery 01/11/25 08:00 01/11/25 08:00 Temperature Pulse Rate 79 Respiratory Rate Blood Pressure Pulse Oximetry Oxygen Delivery Room Air Intake/Output Intake/Output: Intake & Output 01/08/25 01/09/25 01/10/25 01/11/25 23:59 23:59 23:59 23:59 Intake Total 1999 3081.3 2274.2 Output Total 1 50 Balance 1999 3080.3 2224.2 Meds/Results Medications: Active Medications Generic Name Dose Route Start Last Admin Trade Name Freq PRN Reason Stop Dose Admin Acetaminophen 650 mg 01/09/25 23:59 Acetaminophen 325 Mg Tablet PO Q4H PRN Mild Pain (1-3) or Fever Hydrocodone Bitart/Acetaminophen 1 tab 01/09/25 23:59 01/11/25 03:08 Hydrocodone/Acetaminophen (*Crx) 5-325 Mg Tablet PO 1 tab Q4H PRN Administration Pain Rated 4-6 Hydromorphone HCl 0.5 mg 01/09/25 23:59 01/10/25 03:24 Hydromorphone Hcl Inj (*Crx) 1 Mg/Ml Syr IV PUSH 0.5 mg Q4H PRN Administration Pain Rated 7-10 Lactated Ringer's 1,000 mls @ 125 mls/hr 01/09/25 23:45 01/11/25 10:02 Lr - Lactated Ringers Iv IV CONT 125 mls/hr .Q8H JASON Administration Ceftriaxone Sodium 1 gm/ 50 mls @ 100 mls/hr 01/10/25 02:30 01/11/25 03:08 Sodium Chloride IVPB 100 mls/hr Q24H JASON Administration Metronidazole 500 mg in 100 mls @ 100 mls/hr 01/10/25 03:00 01/11/25 03:08 Flagyl 500 Mg/Iso Soln 100 Ml IVPB 100 mls/hr Q8H JASON Administration Ondansetron HCl 4 mg 01/09/25 23:59 01/11/25 09:59 Ondansetron Inj 4 Mg/2 Ml Vial IV PUSH 4 mg Q4H PRN Administration Nausea Radiology Results: ITS Impressions Abdomen/Pelvis CTA 01/09/25 21:58 IMPRESSION: No hemodynamically significant stenosis. No contrast blush seen to suggest active GI bleed. Diffuse thickening of the left colon with adjacent fat induration suggestive of colitis. All CT scans at this facility are performed using low dose modulation techniques as appropriate to perform exam including the following: automated exposure control; use of iterative reconstruction technique; adjustment of the mA and/or kV according to patient size (this includes techniques or standardized protocols for targeted exams where dose is matched to indication/reason for exam). Labs Labs: Laboratory Results - last 24 hr 01/10/25 01/10/25 01/11/25 14:00 20:02 02:34 WBC RBC Hgb 14.5 14.0 14.4 Hct 43.9 41.9 43.1 MCV MCH MCHC RDW Plt Count MPV Immature Gran % (Auto) Neut % (Auto) Lymph % (Auto) [place] % (Auto) Eos % (Auto) Baso % (Auto) Lymph # (Auto) [place] # (Auto) Eos # (Auto) Baso # (Auto) Abs Immat Gran (auto) Absolute Neuts (auto) Absolute Nucleated RBC Nucleated RBC % Sodium Potassium Chloride Carbon Dioxide Anion Gap BUN Creatinine Estim Creat Clear Calc Estimated GFR Glucose Calcium Total Bilirubin AST ALT Alkaline Phosphatase Total Protein Albumin 01/11/25 01/11/25 07:56 08:37 WBC 18.9 H RBC 4.58 Hgb 13.6 13.3 Hct 41.2 40.6 MCV 90.0 MCH 29.7 MCHC 33.0 RDW 12.7 Plt Count 274 MPV 9.7 Immature Gran % (Auto) 0.5 Neut % (Auto) 76.9 H Lymph % (Auto) 15.5 L [place] % (Auto) 6.7 Eos % (Auto) 0.2 Baso % (Auto) 0.2 Lymph # (Auto) 2.92 [place] # (Auto) 1.3 H Eos # (Auto) 0.0 Baso # (Auto) 0.0 Abs Immat Gran (auto) 0.09 H Absolute Neuts (auto) 14.5 H Absolute Nucleated RBC 0.000 Nucleated RBC % 0.0 Sodium 132 L Potassium 3.8 Chloride 102 Carbon Dioxide 27 Anion Gap 3 L BUN 10 Creatinine 0.68 L Estim Creat Clear Calc 60 Estimated GFR > 60 Glucose 91 Calcium 9.3 Total Bilirubin 0.5 AST 29 ALT 14 Alkaline Phosphatase 76 Total Protein 5.9 L Albumin 3.3 L Quality VTE Prophylaxis VTE prophylaxis: mechanical ordered (SCDs)
--- NOTE | 2025-01-11 15:33 | WPDGIPROGNO ---
Progress Note: A&P Assessment and Plan (1) Colitis: Code(s): K52.9 - Noninfective gastroenteritis and colitis, unspecified Status: Acute Assessment and Plan: differential infectious vs ischemic normalization of lactic acid after medical treatment and fluids pain has improved and leukocytosis coming down liquid diet for now, still not much of appetite on flagyl and rocephin stool culture and c diff ordered on admission but not collected- no diarrhea now will need colonoscopy in few weeks after resolution of colitis (2) Lower abdominal pain: Code(s): R10.30 - Lower abdominal pain, unspecified Status: Acute (3) Hematochezia: Code(s): K92.1 - Melena Status: Acute (4) Acute dehydration: Code(s): E86.0 - Dehydration Status: Acute Assessment and Plan: treated (5) Sepsis: Code(s): A41.9 - Sepsis, unspecified organism Status: Acute (6) Leukocytosis: Code(s): D72.829 - Elevated white blood cell count, unspecified Status: Acute Subjective Date/time seen: 01/11/25 15:33 Interval history: less abdominal pain, still poor appetite no blood in stool today, this has improved Review of Systems Review of Systems: All systems reviewed & are unremarkable except as noted in HPI and below Exam Const: General: comfortable and no acute distress HENMT: Face/Nose/Sinus: Normal nares present Eyes: General: appearance normal, both eyes and all related structures Neck: Neck: supple Resp: Auscultation: clear to auscultation bilaterally Cardio: Rate: regular rate Rhythm: regular rhythm GI: Inspection: non-distended GI Palp: Yes Soft to palpation, Yes Tenderness to palpation present (GI) (ttp in lower abdomen, no rebound) and No Guarding due to palpation present (GI) Skin: General skin exam: normal color Neuro: Speech: normal speech Motor exam (neuro): 5/5 motor strength present throughout Extrem: General: normal to inspection Psych: Mental Status: mental status grossly normal Objective Data Vital Signs Vital Signs: Vital Signs - 24 hr 01/10/25 16:05 01/10/25 20:00 01/10/25 20:30 Temperature Pulse Rate 83 99 122 H Respiratory Rate Blood Pressure 112/54 L 89/61 L Pulse Oximetry Oxygen Delivery 01/10/25 21:32 01/11/25 00:00 01/11/25 04:00 Temperature 97.9 F Pulse Rate 89 117 H 84 Respiratory Rate 16 Blood Pressure 117/69 Pulse Oximetry 96 Oxygen Delivery 01/11/25 05:50 01/11/25 08:00 01/11/25 08:00 Temperature 98.4 F Pulse Rate 92 79 Respiratory Rate 16 Blood Pressure 113/64 Pulse Oximetry 97 Oxygen Delivery Room Air 01/11/25 08:00 01/11/25 12:00 01/11/25 12:30 Temperature Pulse Rate 86 Respiratory Rate Blood Pressure 101/61 89/45 L Pulse Oximetry Oxygen Delivery 01/11/25 12:57 01/11/25 12:58 Temperature 98.2 F Pulse Rate 90 Respiratory Rate 18 Blood Pressure 106/53 L 101/61 Pulse Oximetry 97 Oxygen Delivery Intake/Output Intake/Output: Intake & Output 01/08/25 01/09/25 01/10/25 01/11/25 23:59 23:59 23:59 23:59 Intake Total 1999 3081.3 2614.2 Output Total 1 50 Balance 1999 3080.3 2564.2 Meds/Results Medications: Active Medications Generic Name Dose Route Start Last Admin Trade Name Freq PRN Reason Stop Dose Admin Acetaminophen 650 mg 01/09/25 23:59 Acetaminophen 325 Mg Tablet PO Q4H PRN Mild Pain (1-3) or Fever Hydrocodone Bitart/Acetaminophen 1 tab 01/09/25 23:59 01/11/25 14:31 Hydrocodone/Acetaminophen (*Crx) 5-325 Mg Tablet PO 1 tab Q4H PRN Administration Pain Rated 4-6 Hydromorphone HCl 0.5 mg 01/09/25 23:59 01/10/25 03:24 Hydromorphone Hcl Inj (*Crx) 1 Mg/Ml Syr IV PUSH 0.5 mg Q4H PRN Administration Pain Rated 7-10 Lactated Ringer's 1,000 mls @ 125 mls/hr 01/09/25 23:45 01/11/25 10:02 Lr - Lactated Ringers Iv IV CONT 125 mls/hr .Q8H JASON Administration Ceftriaxone Sodium 1 gm/ 50 mls @ 100 mls/hr 01/10/25 02:30 01/11/25 03:08 Sodium Chloride IVPB 100 mls/hr Q24H JASON Administration Metronidazole 500 mg in 100 mls @ 100 mls/hr 01/10/25 03:00 01/11/25 11:13 Flagyl 500 Mg/Iso Soln 100 Ml IVPB 100 mls/hr Q8H JASON Administration Ondansetron HCl 4 mg 01/09/25 23:59 01/11/25 14:31 Ondansetron Inj 4 Mg/2 Ml Vial IV PUSH 4 mg Q4H PRN Administration Nausea Radiology Results: ITS Impressions Abdomen/Pelvis CTA 01/09/25 21:58 IMPRESSION: No hemodynamically significant stenosis. No contrast blush seen to suggest active GI bleed. Diffuse thickening of the left colon with adjacent fat induration suggestive of colitis. All CT scans at this facility are performed using low dose modulation techniques as appropriate to perform exam including the following: automated exposure control; use of iterative reconstruction technique; adjustment of the mA and/or kV according to patient size (this includes techniques or standardized protocols for targeted exams where dose is matched to indication/reason for exam). Labs Labs: Laboratory Results - last 24 hr 01/10/25 01/11/25 01/11/25 20:02 02:34 07:56 WBC 18.9 H RBC 4.58 Hgb 14.0 14.4 13.6 Hct 41.9 43.1 41.2 MCV 90.0 MCH 29.7 MCHC 33.0 RDW 12.7 Plt Count 274 MPV 9.7 Immature Gran % (Auto) 0.5 Neut % (Auto) 76.9 H Lymph % (Auto) 15.5 L [place] % (Auto) 6.7 Eos % (Auto) 0.2 Baso % (Auto) 0.2 Lymph # (Auto) 2.92 [place] # (Auto) 1.3 H Eos # (Auto) 0.0 Baso # (Auto) 0.0 Abs Immat Gran (auto) 0.09 H Absolute Neuts (auto) 14.5 H Absolute Nucleated RBC 0.000 Nucleated RBC % 0.0 Sodium 132 L Potassium 3.8 Chloride 102 Carbon Dioxide 27 Anion Gap 3 L BUN 10 Creatinine 0.68 L Estim Creat Clear Calc 60 Estimated GFR > 60 Glucose 91 Calcium 9.3 Total Bilirubin 0.5 AST 29 ALT 14 Alkaline Phosphatase 76 Total Protein 5.9 L Albumin 3.3 L 01/11/25 08:37 WBC RBC Hgb 13.3 Hct 40.6 MCV MCH MCHC RDW Plt Count MPV Immature Gran % (Auto) Neut % (Auto) Lymph % (Auto) [place] % (Auto) Eos % (Auto) Baso % (Auto) Lymph # (Auto) [place] # (Auto) Eos # (Auto) Baso # (Auto) Abs Immat Gran (auto) Absolute Neuts (auto) Absolute Nucleated RBC Nucleated RBC % Sodium Potassium Chloride Carbon Dioxide Anion Gap BUN Creatinine Estim Creat Clear Calc Estimated GFR Glucose Calcium Total Bilirubin AST ALT Alkaline Phosphatase Total Protein Albumin
[2025-01-12] VITALS: PULSE 71
[2025-01-12] MEDS: cefTRIAXone 1 GM in SODIUM CHLORIDE 0.9% IV 50 ML 100 ML IVPB (02:23)
[2025-01-12] MEDS: metroNIDAZOLE 500 MG/ISO 100ML 500 MG/100 ML BAG 100 MG IVPB ×2 (02:58→10:11)
[2025-01-12 04:00] VITALS: PULSE 75
[2025-01-12] MEDS: LACTATED RINGERS 1,000 ML 125 ML IV CONT ×2 (05:18→10:11)
[2025-01-12 08:00] VITALS: PULSE 86
[2025-01-12 12:00] VITALS: PULSE 79
--- NOTE | 2025-01-12 13:12 | P.DS_ITS ---
DS: Admitting Diagnosis Discharge Date 01/12/2025 Admitting Diagnosis Colitis DS: Discharge Diagnosis Discharge Diagnosis (1) Sepsis: Code(s): A41.9 - Sepsis, unspecified organism Status: Acute Assessment and Plan: * Meets SIRS criteria: Tachycardia, leukocytosis * lactic acid: 2.2 * 30 mL/kg = 1/3 L of fluid * suspected source: Infectious Colitis * blood cultures drawn on 01/09 - still pending * Abdomen/pelvis CT: Diffuse thickening of the left colon with adjacent fat diane ration suggestive of colitis. No hemodynamically significant stenosis. No contrast blush seen to suggest active GI bleed. * 01/11: WBC 24.1 -> 18.9, remains afebrile without tachy 01/12: -WBC: 9.1, continues to be VSS (known hx of hypotension) -Sepsis/SIRS resolved -Pt reports chronic hypotension, see below. (2) Colitis presumed infectious: Code(s): K52.9 - Noninfective gastroenteritis and colitis, unspecified Status: Acute Assessment and Plan: Patient states that every year she will experience nausea, vomiting and diarrhea similar to the presentation she has during this hospitalization, but states that this time it is much worse. She also reports noticing blood clots in her stool yesterday which is new. * Inflammatory colitis likely given presentation of symptoms, which are acute in onset with associated leukocytosis * Met septic criteria presentation * Volume depleted with polycythemia due to hemoconcentration * Changed Levaquin to Rocephin plus Flagyl * Blood cultures obtained, pending * Stool studies for C diff and culture pending * GI consult for further recommendations - she had a colonoscopy scheduled for February * treat with IV fluids, antibiotics continue bowel rest * defer colonoscopy until acute infection has cleared 01/12: Pt states that she is feeling better, denies N/V/D. Reports mild TTP abd. To continue on levaquin & flagyl x2 days at discharge. -Pt reports that she is due for her cscope in Feb 2025, to f/u with Dr. Dewey. (3) Hematochezia: Code(s): K92.1 - Melena Status: Acute Assessment and Plan: * See above * H&H WNL * transfuse if <7 * trend H&H * Resolved (4) Acute dehydration: Code(s): E86.0 - Dehydration Status: Acute Assessment and Plan: * Likely secondary to problem underlying infectious colitis (5) Hypotension: Qualifiers: Hypotension type: unspecified hypotension type Qualified Code(s): I95.9 - Hypotension, unspecified Code(s): I95.9 - Hypotension, unspecified Status: Acute Assessment and Plan: Pt reports chronic hypotension, pt has been soft through the duration of her inpt stay, reports her mothers side of the famil all have hypotension -Denies CP/SOB or any other sx. -Given instruction to take a log of her BPs at home and f/u with PCP with them Plan Discharge to home with the rest of abx course with PCP and GI f/u. DS: Summary Hospital Course Reason for hospitalization: Colitis Hospital Course: 64-year-old female with history of osteoporosis presenting to the emergency department on 01/09 with GI rectal bleeding. Patient states that 5:00 a.m. on the morningof 01/09 she woke up with nausea and abdominal discomfort and had diarrhea consistent of bright red blood mixed with dark blood. Patient has been bleeding throughout the day and went to the bathroom over 12 times each time filling the toilet bowl with bright red blood. She started using menstrual pads to try and control the bleeding. She has a history of hysterectomy and or for ectopy. Previously had large amounts of bleeding secondary to endometriosis but this resolved after the surgery. She takes a daily aspirin for heart health but otherwise no other anticoagulation. No abdominal trauma, no recent illnesses. No fever, chills, back pain, chest pain, shortness a breath. Had a colonoscopy previously (years ago) with no concerns per patient report. Patient has bright red blood per rectum and positive orthostatic vitals with heart rate increasing 148. Transient hypotension that resolved upon laying down. Current blood pressure 121/65. She does appear pale and ill. Suspect GI bleeding, low suspicion infectious pathology such as colitis. CT angiography of the abdomen pelvis was ordered, blood work obtained, given fluids and placed on quality assurance monitor final. Patient's laboratory studies x-rays show hemoconcentration with an elevated hemoglobin and a large leukocytosis of 27.6. CT angiography shows no active GI bleed but evidence of colitis. Pt denies dietary changes or recent travel. Unknown exact source of this but given the bloody diarrhea, dehydration and abnormal vital signs she requires hospitalization for IV antibiotics and fluids. Started on Levaquin and given additional fluids. Repeat blood pressure 139/71, heart rate 98. Patient did feel better after fluids. Pt admitted to the hospital on 01/10 for infectious colitis. Patient met septic criteria on presentation and 30 mL/kilos fluid bolus. She was still tachycardic and received 1/3 L of fluid which improved her heart rate. She was markedly volume depleted with polycythemia due to hemoconcentration. Abx were changed from Levaquin to Rocephin and Flagyl. Since admission, rectal bleeding, SIRS, tachycardia, diarrhea, and leukocytosis have all resolved. GI following and agrees for discharge with cscope Feb 2025) and GI f/u and finishing up his abx: x2 days of Levaquin & Flagyl. Status at Discharge Overall status at discharge: patient is progressing back to baseline Time Spent with Patient Time attestation: Total time spent providing and/or coordinating discharge services: 45 Exam Narrative: Weight 54.6 kg BMI 20 Const: Other: Well-developed well-nourished, appears stated age HENMT: Other: Mucous membranes are moist, no oral pharyngeal erythema, head is normocephalic atraumatic Eyes: Other: Pupils are equal and reactive, no scleral icterus, no conjunctival pallor Neck: Other: No JVD, no lymphadenopathy, no thyromegaly Resp: Other: Clear to auscultation bilaterally, and no increased work of breathing Cardio: Other: Regular rate, regular rhythm, 2+ bilateral radial and pedal pulses, no murmur GI: Other: Soft, mild generalized tenderness to palpation, nondistended, hyperactive bowel sounds Skin: Other: No pallor, non jaundice, normal temperature to touch Neuro: Other: Alert oriented, speech is clear, no facial asymmetry, moves all extremities equally, no localizing neurologic deficits noted during the course of conversation Extrem: Other: No clubbing, cyanosis or edema, moves all extremities equally Psych: Other: Appropriate mood and affect, pleasant and cooperative, judgment and insight intact DS: Data Data Completed and Pending Completed studies during hospitalization: Labs, urine, imaging Discharge Plan Discharge Attending physician on discharge: Jacob Dejesus Consulting providers: Jorge L Rothman Megan Discharging Clinician: Winnie Hollingsworth Anticipated Discharge Date/Time: 01/12/25 15:00 Patient Disposition: Home Activity: as tolerated Diet: as tolerated and regular Discharge Instructions: 1. Continue the antibiotics for the next two days (levofloxacin, metronidazole) to complete their course per the GI team. Also plan to follow-up with the GI team for your repeat colonoscopy. Continue to check your blood pressure and blood sugar at home if applicable. Keep your scheduled appts with your primary care provider and any specialist that you may see. Return to the emergency department if you develop sudden shortness of breath, chest pain, a fever of greater than 101.5, or nausea, vomiting, abd pain, or diarrhea that does not go away. Follow-up with your primary care provider within 1-2 weeks, they will want to be updated on your inpatient stay in the hospital. Thank you for choosing [facility] for your healthcare needs. Patient Instructions: Antibiotic Form, How to Stop Smoking (ED) Patient Language: Russian Stand Alone Forms: General Discharge Information Follow-up/Referrals: Kamran,Dandre Hall MD [Primary Care Provider, Unknown] - 2 Weeks Vinh King MD [Physician, Gastroenterology] - 2 Weeks Discharge Medications: New levofloxacin 750 mg tablet 750 mg PO DAILY Qty: 2 0RF metronidazole 500 mg tablet 500 mg PO Q8H Qty: 7 0RF Rx Instructions: First dose starting tonight and then take every 8 hours for the next 2 days, no need to wake overnight to take. Continued alendronate 70 mg tablet 70 mg PO WEEKLY ergocalciferol (vitamin D2) 1,250 mcg (50,000 unit) capsule 50,000 unit PO WEEKLY rosuvastatin 10 mg tablet 10 mg PO .nightly Date of admission: 01/09/25 23:59 Primary Care Provider: MihaiDandre Admitting Provider: Brii Pardo Attending physician on admission: Brii Pardo Condition: Stable Quality VTE Prophylaxis VTE prophylaxis: mechanical ordered (SCDs) Hospitalist MIPS Heart Failure (Exclusion) Patient has history of Heart Transplant or Left Ventricular Assistive Device?: No IF YES, STOP HERE Heart Failure (Qualifier) Patient has current or prior documentation of LVEF less than or equal to 40%, or mod/servere depressed LVSF?: No IF NO, STOP HERE
[2025-01-12 13:17] LABS: Hematocrit 36.7 % (37.0-47.0); Hemoglobin 12.1 g/dL (12.0-15.0); Mean Corpuscular HGB Conc 33.0 g/dl (32-36); Mean Corpuscular Hemoglobin 29.8 pg (26-34); Mean Corpuscular Volume 90.4 fl (80-100); Platelet Count Result 255 k/mm3 (150-375); Red Blood Count 4.06 M/mm3 (4.2-5.4); White Blood Count 9.1 K/mm3 (4.5-10.0)
--- NOTE | 2025-01-12 14:20 | WPDGIPROGNO ---
Progress Note: A&P Assessment and Plan (1) Colitis presumed infectious: Code(s): K52.9 - Noninfective gastroenteritis and colitis, unspecified Status: Acute Assessment and Plan: Patient responded well to antibiotic therapy. She did not have any diarrhea or rectal bleeding since admission. She received already 3 days of ceftriaxone and metronidazole. Given her normal white count today, she is in a stable condition to be discharged home, with levofloxacin 750 mg q.d. + metronidazole 500 mg t.i.d. for 2 more days. Patient has a colonoscopy scheduled for next month in [facility]. Subjective Date/time seen: 01/12/25 14:20 Objective Data Vital Signs Vital Signs: Vital Signs - 24 hr 01/11/25 16:00 01/11/25 20:00 01/11/25 20:00 Temperature 97.7 F Pulse Rate 78 84 Respiratory Rate 20 Blood Pressure 93/57 L Pulse Oximetry 96 Oxygen Delivery Room Air 01/11/25 20:00 01/11/25 20:40 01/11/25 20:42 Temperature 97.7 F Pulse Rate 76 84 Respiratory Rate 20 Blood Pressure 93/57 L 86/53 L Pulse Oximetry 96 Oxygen Delivery 01/11/25 20:42 01/11/25 20:45 01/11/25 20:45 Temperature Pulse Rate Respiratory Rate Blood Pressure 91/52 L 86/53 L 91/52 L Pulse Oximetry Oxygen Delivery 01/11/25 22:49 01/12/25 00:00 01/12/25 04:00 Temperature Pulse Rate 71 75 Respiratory Rate Blood Pressure Pulse Oximetry 96 Oxygen Delivery Room Air 01/12/25 07:49 01/12/25 08:00 01/12/25 12:00 Temperature Pulse Rate 86 79 Respiratory Rate Blood Pressure Pulse Oximetry Oxygen Delivery Room Air Intake/Output Intake/Output: Intake & Output 01/09/25 01/10/25 01/11/25 01/12/25 23:59 23:59 23:59 23:59 Intake Total 1999 3081.3 4064.6 2490 Output Total 1 50 Balance 1999 3080.3 4014.6 2490 Meds/Results Medications: Active Medications Generic Name Dose Route Start Last Admin Trade Name Freq PRN Reason Stop Dose Admin Acetaminophen 650 mg 01/09/25 23:59 Acetaminophen 325 Mg Tablet PO Q4H PRN Mild Pain (1-3) or Fever Hydrocodone Bitart/Acetaminophen 1 tab 01/09/25 23:59 01/11/25 14:31 Hydrocodone/Acetaminophen (*Crx) 5-325 Mg Tablet PO 1 tab Q4H PRN Administration Pain Rated 4-6 Hydromorphone HCl 0.5 mg 01/09/25 23:59 01/10/25 03:24 Hydromorphone Hcl Inj (*Crx) 1 Mg/Ml Syr IV PUSH 0.5 mg Q4H PRN Administration Pain Rated 7-10 Ceftriaxone Sodium 1 gm/ 50 mls @ 100 mls/hr 01/10/25 02:30 01/12/25 02:57 Sodium Chloride IVPB Infused Q24H JASON Infusion Metronidazole 500 mg in 100 mls @ 100 mls/hr 01/10/25 03:00 01/12/25 11:11 Flagyl 500 Mg/Iso Soln 100 Ml IVPB Infused Q8H JASON Infusion Ondansetron HCl 4 mg 01/09/25 23:59 01/11/25 14:31 Ondansetron Inj 4 Mg/2 Ml Vial IV PUSH 4 mg Q4H PRN Administration Nausea Radiology Results: ITS Impressions Abdomen/Pelvis CTA 01/09/25 21:58 IMPRESSION: No hemodynamically significant stenosis. No contrast blush seen to suggest active GI bleed. Diffuse thickening of the left colon with adjacent fat induration suggestive of colitis. All CT scans at this facility are performed using low dose modulation techniques as appropriate to perform exam including the following: automated exposure control; use of iterative reconstruction technique; adjustment of the mA and/or kV according to patient size (this includes techniques or standardized protocols for targeted exams where dose is matched to indication/reason for exam). Labs Labs: Laboratory Results - last 24 hr 01/12/25 13:14 WBC 9.1 RBC 4.06 L Hgb 12.1 Hct 36.7 L MCV 90.4 MCH 29.8 MCHC 33.0 RDW 12.6 Plt Count 255 MPV 9.3
== END 2025-01-12 14:30 | disposition home or self-care (01) | DRG 872 ==
LOC: ANHED 23:17 → ANH3MED 01-10 01:16
PROVIDERS: Emergency Medicine; Internal Medicine Gastroenterology; Physician Assistant; Admitting Provider Internal Medicine; Emergency Provider Student in an Organized Health Care Education/Training Program; PCP Family Medicine
DX: A41.9 Sepsis, unspecified organism (principal); A09 Infectious gastroenteritis and colitis, unspecified; E87.20 Acidosis, unspecified; E86.0 Dehydration; D75.1 Secondary polycythemia; E83.119 Hemochromatosis, unspecified; E78.5 Hyperlipidemia, unspecified; M81.0 Age-related osteoporosis without current pathological fracture; I95.89 Other hypotension; R11.2 Nausea with vomiting, unspecified; F17.210 Nicotine dependence, cigarettes, uncomplicated; F12.90 Cannabis use, unspecified, uncomplicated; Z79.82 Long term (current) use of aspirin; Z90.710 Acquired absence of both cervix and uterus
CPT/HCPCS: 36415; 74174; 80053; 83605; 83735; 85014; 85018; 85025; 85027; 85610; 85730; 86850; 86900; 86901; 87040; 93005; 96361; 96365; 96375; 99285; A9270; J0696; J1171; J1836; J1956; J2405; J7120; Q9967